=== PATIENT | female | born 1945 | race Caucasian/White ===

== ENCOUNTER → 2017-07-25 11:13 | Outpatient (CLI) | payer OTHER, SELFPAY ==
[2017-07-25 12:14] LABS: Add Manual Diff / Slide Review NO; Basophils Percent Auto 1.2 % (0-2); Eosinophils Percent Auto 10.2 % (2-4); Hematocrit 41.7 % (36-46); Hemoglobin 14.2 g/dL (12.0-16.0); Lymphocytes Percent Auto 26.5 % (25-40); Mean Corpuscular Hemoglobin 29.4 PG (26-34); Mean Corpuscular Volume 86.4 fL (80-100); Monocytes Percent Auto 6.1 % (3-14); Neutrophils Absolute Auto 6100 /uL (3000-5900); Platelet Count 369 X10^3/uL (150-400); Red Blood Cell Count 4.82 X10^6/uL (4.0-5.2); Red Cell Distribution Width 12.8 % (11.6-14.8); White Blood Cell Count 10.9 X10^3/uL (4.5-11.0)
[2017-07-25 13:15] LABS: Alanine Aminotransferase 30 IU/L (9-52); Albumin 4.1 g/dL (3.5-5.0); Albumin Globulin Ratio 1.5 (1.0-2.8); Alkaline Phosphatase 85 U/L (38-126); Aspartate Aminotransferase 18 IU/L (14-36); BUN Creatinine Ratio 24.4 (6-22); Bilirubin Total 0.6 mg/dL (0.2-1.3); Calcium 9.9 mg/dL (8.4-10.2); Cholesterol 145 mg/dL (140-199); Estimated Glomerular Filt Rate > 60.0 mL/min (>60); Globulin 2.7 g/dL (1.7-4.1); Glucose 89 mg/dL (80-110); HDL Cholesterol 39 mg/dL (40-60); HEMOLYSIS < 15 (0-50); LDL Cholesterol Calculated 70 mg/dL (<100); Potassium 5.3 mmol/L (3.4-5.1); Sodium 137 mmol/L (137-145); Total Protein 6.8 g/dL (6.3-8.2); Triglycerides 182 mg/dL (35-150)
[2017-07-25 13:46] LABS: Thyroid Stimulating Hormone 2.62 uIU/mL (0.47-4.68)
== END ==
PROVIDERS: PCP Family Medicine; Visit Provider Family Medicine
DX: I10 Essential (primary) hypertension (principal); E78.2 Mixed hyperlipidemia; E11.9 Type 2 diabetes mellitus without complications
CPT/HCPCS: 36415; 80053; 80061; 84443; 85025

== ENCOUNTER → 2017-08-01 10:15 | Outpatient (CLI) | payer OTHER, SELFPAY ==
--- NOTE | 2017-08-01 10:18 | DI.RAD.S_ITS ---
PROCEDURE: XR LUMBAR SPINE MIN 4V INDICATIONS: pain TECHNIQUE: 5 views of the lumbar spine acquired. COMPARISON: None. FINDINGS: Bones: 5 nonrib-bearing vertebrae are present. There is slight retrolisthesis at T12-L1, L1-L2, with mild anterolisthesis L3-4 and L4-5. Disc degeneration L5-S1. Disc space narrowing L1-2, L3-4 and L4-5. No vertebral body compression fractures. No suspicious bony lesions. There is sclerosis over the facet joints, most marked at L4-5 and L5-S1. Soft tissues: Overlying bowel gas pattern is normal. Vascular calcifications. Flexion/extension: There is normal range of motion, with malalignment unchanged. IMPRESSION: 1. Lumbar malalignment appearing stable during range of motion. 2. Multilevel disc degeneration and facet arthropathy. 3. Atherosclerosis without aneurysm. Dictated by: nAdrew Wong M.D. on 08/01/2017 at 11:33 Approved by: Andrew Wong M.D. on 08/01/2017 at 11:36
[2017-08-01 12:26] LABS: Hemoglobin A1C% w Est Avg Glu 6.3 % (4.0-6.0)
== END ==
PROVIDERS: PCP Family Medicine; Visit Provider Family Medicine
DX: E11.9 Type 2 diabetes mellitus without complications (principal); M25.559 Pain in unspecified hip
CPT/HCPCS: 36415; 72110; 83036

== ENCOUNTER 2017-08-06 14:30 | Outpatient (RCR) | payer OTHER, SELFPAY ==
--- NOTE | 2017-07-23 17:26 | PT.OIE ---
Current Diagnoses Pain in left hip (07/23/17) Past Surgical History History of carpal tunnel repair History of fundoplication History of knee replacement History of tonsillectomy Status post appendectomy Provider Visit Care Team Role Provider Type Ezra Oconnor MD Attending Provider Physician Family Provider Primary Care Provider Specialty: Family Practice Address: [address] [place] [address], [id number] Email: [email or web address] Physical Therapy Initial Evaluation PT-OP-A Visit Information Start: 07/23/17 16:54 Freq: Status: Active Protocol: Document 07/23/17 16:54 [facility] (Rec: 07/23/17 17:06 [facility] [email or web address]) Out-Patient Physical Therapy Visit Information Visit Information Visit Type Initial Evaluation Visit Start Time 13:00 Visit Stop Time 13:45 Total Visit Minutes 45 Evaluation Information Evaluation Date 07/23/17 PT-OP-B Current Condition Start: 07/23/17 16:54 Freq: Status: Active Protocol: Document 07/23/17 16:54 [facility] (Rec: 07/23/17 17:06 [facility] [email or web address]) Current Condition History of Current Condition Onset Date February 2017 Current Complaints compaints of L sided inner groin and hip pain, intermittent radicular sx History of Current Condition Rabia reports her symptoms began when she was sitting crossed legged on her living room floor and she leaned really far forward to grab something off the floor. She felt an immediate strain in her left groin region. Pain progressed from there to her hip as time when on. Then she started noticing pain down the lateral left leg. Rabia reports when symptoms are at their worst she will make her self walk and this helps after a while to ease the pain. Sitting and trying to roll over in bed can increase symptoms Treatment Goals Patient/Caregiver Goals Rabia's goals include decreasing pain so that she can continue with her daily activities and sleep/sit without pain Prior Functional Status Baseline Function- ADL's Independent Baseline Function- Mobility Independent Current Functional Impairments (Reported) Functional Limitations- ADL's pain with sitting or squatting and with trying to fall asleep at night PT-OP-C Subjective Start: 07/23/17 16:54 Freq: Status: Active Protocol: Document 07/23/17 16:54 [facility] (Rec: 07/23/17 17:06 [facility] [email or web address]) OP-PT Subjective Patient Comments Patient Comments Rabia rates her pain as 4/10 PT-OP-F Manual Assessment Start: 07/23/17 17:06 Freq: Status: Active Protocol: Document 07/23/17 17:07 [facility] (Rec: 07/23/17 17:26 [facility] [email or web address]) Manual Assessments Soft Tissue Assessment Soft Tissue Mobility Assessment tenderness to palpation and muscle guarding at the left adductor attachment tot he pubic ramus, left sacral TERESA and piriformis musculature Joint Mobility Assessment Joint Mobility Assessment + SI joint test unstable on the left with + ASLR Other Manual Assessments Other Manual Assessments left leg longer in supine + tests for left anteriorly rotated innominate sacrum rotated to the left PT-OP-J Posture/Palpation/Skin Start: 07/23/17 17:06 Freq: Status: Active Protocol: Document 07/23/17 17:07 [facility] (Rec: 07/23/17 17:26 [facility] [email or web address]) Palpation Assessment Location One Palpation Findings Tenderness Palpation Details Left PSIS and sacral border PT-OP-K Range of Motion Start: 07/23/17 17:06 Freq: Status: Active Protocol: Document 07/23/17 17:07 [facility] (Rec: 07/23/17 17:26 [facility] [email or web address]) Hip Goniometric Range of Motion Hip Measured in Degrees Left Testing Position Supine Internal Rotation 20 External Rotation 30 Hip ROM Limitations Hip ROM Limitations Soft Tissue Tightness Pain Comments sharp pain with hip IR/ER in standing and in supine AROM with leg straight PT-OP-Q Treatments Start: 07/23/17 17:06 Freq: Status: Active Protocol: Document 07/23/17 17:07 [facility] (Rec: 07/23/17 17:26 [facility] [email or web address]) Therapeutic Exercises Supine Exercises 1 Supine Exercise Name gave HEP of pelvic floor isolations, TA, adductor ball squeeze Side bilateral Reps/Minutes 2 sets of 10 reps Manual Therapy Treatment Soft Tissue Mobilization 1 Mobilization Type Myofascial Release Body Position Prone Comments left pirformis muscle MFR Joint Mobilizations 1 Joint MET left innominant anterior rotation Grade I Body Position Supine Reps/Duration 5 reps with MET Comments technique to reduce left anterior rotated innominant PT-OP-T Assessment and Plan Start: 07/23/17 17:06 Freq: Status: Active Protocol: Document 07/23/17 17:07 [facility] (Rec: 07/23/17 17:26 [facility] [email or web address]) Physical Therapy Assessment Rehab Potential Rehabilitation Potential Excellent Evaluation Complexity Number of Personal Factors/Comorbidities 0 Number of Body Systems Impaired 1-2 Clinical Presentation at Evaluation Stable Impairments Impairments Functional Activities Pain ROM Soft Tissue Mobility Strength Tone Goals Three Impairment muscle guarding and spasm of the left piriformis Patient Portal Representative Goal (LTG) reduce muscle guarding and spasm of the left pififormis musculature to decrease pull on the sacrum and decrease radicular symptoms Two Impairment SI dysfunction Short Term Goal (STG) Correct alignement of the SI joint equalizing leg length and Rabia no longer has pain with left hip IR/ER STG Duration 5 weeks One Impairment pain rated 4/10 with radicular pain down the left leg at times Longterm Goal (LTG) Rabia reports overall a decrease in hip and groin pain . She is able to sleep through the night and is not having pain with sitting or radiating down her leg LTG Duration 8 weeks Assessment Summary Assessment Rabia presents to physical therapy with symptoms of SI dysfunction. Her left innominant is roated forward and sacrum is rotated to the left. She notes she feels arechiga if her left leg is longer in standing and this is most likely due to the SI being out of alignment. Treatment will focus on SI alignment and stabilization for the SI joint, STM/MFR and flexibility exercises for the hip musculature Physical Therapy Plan Frequency and Duration Frequency of Treatment 2x/Week Duration of Treatment 8 weeks Plan of Care Start Date 07/23/17 Plan of Care End Date 09/17/17 Therapeutic Interventions Therapeutic Interventions Home Exercise Program Joint Mobilizations Manual Therapy Neuromuscular Re-education Patient/Caregiver Education Self-Care/Home Management Soft Tissue Mobilization Therapeutic Exercises Modalities Cold Pack/Ice Massage Ultrasound Please Sign and Return: I have reviewed this Plan of Care and certify that the skilled therapy services above are required to meet the patient???s needs. Physician Signature Date Printed Name and Credentials Clinical Instructor Signature Printed Name and Credentials
--- NOTE | 2017-07-26 06:17 | PT.OTN ---
Current Diagnoses Pain in left hip (07/25/17) Physical Therapy Treatment Note PT-OP-A Visit Information Start: 07/23/17 16:54 Freq: Status: Active Protocol: Document 07/25/17 13:45 [facility] (Rec: 07/26/17 06:15 [facility] [email or web address]) Out-Patient Physical Therapy Visit Information Visit Information Visit Type Treatment Note Visit Start Time 13:45 Visit Stop Time 14:30 Total Visit Minutes 45 Visit Number 2 Number of TIMBER ESTIMATOR Visits 0 PT-OP-B Current Condition Start: 07/23/17 16:54 Freq: Status: Active Protocol: Document 07/23/17 16:54 [facility] (Rec: 07/23/17 17:06 [facility] [email or web address]) Current Condition History of Current Condition Onset Date February 2017 Current Complaints compaints of L sided inner groin and hip pain, intermittent radicular sx History of Current Condition Rabia reports her symptoms began when she was sitting crossed legged on her living room floor and she leaned really far forward to grab something off the floor. She felt an immediate strain in her left groin region. Pain progressed from there to her hip as time when on. Then she started noticing pain down the lateral left leg. Rabia reports when symptoms are at their worst she will make her self walk and this helps after a while to ease the pain. Sitiing and trying to roll over in bed can exxacerbate symptoms Treatment Goals Patient/Caregiver Goals Rabia's goals include decreasing pain so that she can continue with her daily activities and sleep/sit without pain Prior Functional Status Baseline Function- ADL's Independent Baseline Function- Mobility Independent Current Functional Impairments (Reported) Functional Limitations- ADL's pain with sitting or squatting and with trying to fall asleet at night PT-OP-C Subjective Start: 07/23/17 16:54 Freq: Status: Active Protocol: Document 07/25/17 13:45 [facility] (Rec: 07/26/17 06:15 [facility] [email or web address]) OP-PT Subjective Patient Comments Patient Comments Brisa reports she felt better after last visit Patient Reported Progress Improving PT-OP-F Manual Assessment Start: 07/23/17 17:06 Freq: Status: Active Protocol: Document 07/23/17 17:07 [facility] (Rec: 07/23/17 17:26 [facility] [email or web address]) Manual Assessments Soft Tissue Assessment Soft Tissue Mobility Assessment tenderness to palpation and muscle guarding at the left adductor attachment tot he pubic ramus, left sacral TERESA and piriformis musculature Joint Mobility Assessment Joint Mobility Assessment + SI joint test unstable on the left with + ASLR Other Manual Assessments Other Manual Assessments left leg longer in supine + tests for left anteriorly rotated innominate sacrum rotated to the left PT-OP-J Posture/Palpation/Skin Start: 07/23/17 17:06 Freq: Status: Active Protocol: Document 07/23/17 17:07 [facility] (Rec: 07/23/17 17:26 [facility] [email or web address]) Palpation Assessment Location One Palpation Findings Tenderness Palpation Details Left PSIS and sacral border PT-OP-K Range of Motion Start: 07/23/17 17:06 Freq: Status: Active Protocol: Document 07/23/17 17:07 [facility] (Rec: 07/23/17 17:26 [facility] [email or web address]) Hip Goniometric Range of Motion Hip Measured in Degrees Left Testing Position Supine Internal Rotation 20 External Rotation 30 Hip ROM Limitations Hip ROM Limitations Soft Tissue Tightness Pain Comments sharp pain with hip IR/ER in standing and in supine AROM with leg straight PT-OP-Q Treatments Start: 07/23/17 17:06 Freq: Status: Active Protocol: Document 07/25/17 13:45 [facility] (Rec: 07/26/17 06:15 [facility] [email or web address]) Therapeutic Exercises Supine Exercises 2 Supine Exercise Name hamstring stretch and ITB stretch with strap Side left Reps/Minutes hold 1-2 minutes 1 Supine Exercise Name gave HEP of pelvic floor isolations, TA, adductor ball squeeze Side bilateral Reps/Minutes 2 sets of 10 reps Manual Therapy Treatment Soft Tissue Mobilization 2 Body Location left adductors Mobilization Type Myofascial Release Comments MFR to the left adductors Joint Mobilizations 1 Joint MET left innominant anterior rotation Grade I Body Position Supine Reps/Duration 5 reps with MET Comments technique to reduce left anterior rotated innominant PT-OP-R Modalities Start: 07/26/17 06:15 Freq: Status: Active Protocol: Document 07/25/17 13:45 [facility] (Rec: 07/26/17 06:17 [facility] [email or web address]) Ultrasound Therapy Treatment Left Thigh Treatment Duration (minutes) 8 Patient Position Supine Coupling Medium Ultrasound Gel Frequency Setting (mHz) 1 Mode Setting Continuous Intensity Setting (w/cm2) 1.5 Patient Tolerance Good Comment Treatment Comment left adductor proximal attachment PT-OP-T Assessment and Plan Start: 07/23/17 17:06 Freq: Status: Active Protocol: Document 07/25/17 13:45 [facility] (Rec: 07/26/17 06:15 [facility] [email or web address]) Physical Therapy Assessment Rehab Potential Rehabilitation Potential Excellent Impairments Impairments Functional Activities Pain ROM Soft Tissue Mobility Strength Tone Assessment Summary Assessment decreased tenderness in the left gluteals today, some improvement with hip IR/ER Physical Therapy Plan Frequency and Duration Frequency of Treatment 2x/Week Duration of Treatment 8 weeks Plan of Care Start Date 07/23/17 Plan of Care End Date 09/17/17 Next Visit Focus/Plan Next Note Type Treatment Note Next Visit Plan work towards improved flexibility of the left hip and SI stabilization Please Sign and Return: I have reviewed this Plan of Care and certify that the skilled therapy services above are required to meet the patient???s needs. Physician Signature Date Printed Name and Credentials Clinical Instructor Signature Printed Name and Credentials
--- NOTE | 2017-07-30 17:08 | PT.OTN ---
Current Diagnoses Pain in left hip (07/30/17) Physical Therapy Treatment Note PT-OP-A Visit Information Start: 07/23/17 16:54 Freq: Status: Active Protocol: Document 07/30/17 17:01 [facility] (Rec: 07/30/17 17:08 [facility] [email or web address]) Out-Patient Physical Therapy Visit Information Visit Information Visit Type Treatment Note Visit Start Time 13:45 Visit Stop Time 14:30 Total Visit Minutes 45 Visit Number 3 Number of NARROW GAUGE OPERATOR Visits 0 PT-OP-B Current Condition Start: 07/23/17 16:54 Freq: Status: Active Protocol: Document 07/23/17 16:54 [facility] (Rec: 07/23/17 17:06 [facility] [email or web address]) Current Condition History of Current Condition Onset Date February 2017 Current Complaints compaints of L sided inner groin and hip pain, intermittent radicular sx History of Current Condition Rabia reports her symptoms began when she was sitting crossed legged on her living room floor and she leaned really far forward to grab something off the floor. She felt an immediate strain in her left groin region. Pain progressed from there to her hip as time when on. Then she started noticing pain down the lateral left leg. Rabia reports when symptoms are at their worst she will make her self walk and this helps after a while to ease the pain. Sitiing and trying to roll over in bed can exxacerbate symptoms Treatment Goals Patient/Caregiver Goals Rabia's goals include decreasing pain so that she can continue with her daily activities and sleep/sit without pain Prior Functional Status Baseline Function- ADL's Independent Baseline Function- Mobility Independent Current Functional Impairments (Reported) Functional Limitations- ADL's pain with sitting or squatting and with trying to fall asleet at night PT-OP-C Subjective Start: 07/23/17 16:54 Freq: Status: Active Protocol: Document 07/30/17 17:01 [facility] (Rec: 07/30/17 17:08 [facility] [email or web address]) OP-PT Subjective Patient Comments Patient Comments Brisa reports she drove to [facility] yesterday this weekend and she could tell she was stiff today when she tried to walk. She notes she is doing better with hip rotation Patient Reported Progress Improving PT-OP-F Manual Assessment Start: 07/23/17 17:06 Freq: Status: Active Protocol: Document 07/23/17 17:07 [facility] (Rec: 07/23/17 17:26 [facility] [email or web address]) Manual Assessments Soft Tissue Assessment Soft Tissue Mobility Assessment tenderness to palpation and muscle guarding at the left adductor attachment tot he pubic ramus, left sacral TERESA and piriformis musculature Joint Mobility Assessment Joint Mobility Assessment + SI joint test unstable on the left with + ASLR Other Manual Assessments Other Manual Assessments left leg longer in supine + tests for left anteriorly rotated innominate sacrum rotated to the left PT-OP-J Posture/Palpation/Skin Start: 07/23/17 17:06 Freq: Status: Active Protocol: Document 07/23/17 17:07 [facility] (Rec: 07/23/17 17:26 [facility] [email or web address]) Palpation Assessment Location One Palpation Findings Tenderness Palpation Details Left PSIS and sacral border PT-OP-K Range of Motion Start: 07/23/17 17:06 Freq: Status: Active Protocol: Document 07/23/17 17:07 [facility] (Rec: 07/23/17 17:26 [facility] [email or web address]) Hip Goniometric Range of Motion Hip Measured in Degrees Left Testing Position Supine Internal Rotation 20 External Rotation 30 Hip ROM Limitations Hip ROM Limitations Soft Tissue Tightness Pain Comments sharp pain with hip IR/ER in standing and in supine AROM with leg straight PT-OP-Q Treatments Start: 07/23/17 17:06 Freq: Status: Active Protocol: Document 07/30/17 17:01 [facility] (Rec: 07/30/17 17:08 [facility] [email or web address]) Therapeutic Exercises Supine Exercises 4 Supine Exercise Name SLR Reps/Minutes 10 reps 3 Supine Exercise Name roll outs with theraband Reps/Minutes 2 sets of 10 reps 2 Supine Exercise Name hamstring stretch and ITB stretch with strap Side left Reps/Minutes hold 1-2 minutes 1 Supine Exercise Name gave HEP of pelvic floor isolations, TA, adductor ball squeeze Side bilateral Reps/Minutes 2 sets of 10 reps Sidelying Exercises 2 Sidelying Exercise Name sidelying hip abduction Reps/Minutes 3 sets of 10 reps 1 Sidelying Exercise Name clam shells Reps/Minutes 3 sets of 10 reps Manual Therapy Treatment Soft Tissue Mobilization 1 Mobilization Type Myofascial Release Body Position Prone Comments left pirformis muscle MFR Joint Mobilizations 1 Joint MET left innominant anterior rotation Grade I Body Position Supine Reps/Duration 5 reps with MET Comments technique to reduce left anterior rotated innominant PT-OP-R Modalities Start: 07/26/17 06:15 Freq: Status: Active Protocol: Document 07/25/17 13:45 [facility] (Rec: 07/26/17 06:17 [facility] [email or web address]) Ultrasound Therapy Treatment Left Thigh Treatment Duration (minutes) 8 Patient Position Supine Coupling Medium Ultrasound Gel Frequency Setting (mHz) 1 Mode Setting Continuous Intensity Setting (w/cm2) 1.5 Patient Tolerance Good Comment Treatment Comment left adductor proximal attachment PT-OP-T Assessment and Plan Start: 07/23/17 17:06 Freq: Status: Active Protocol: Document 07/30/17 17:01 [facility] (Rec: 07/30/17 17:08 [facility] [email or web address]) Physical Therapy Assessment Assessment Summary Assessment able to perform clam shells and roll outs with theraband without hip pain today. Physical Therapy Plan Frequency and Duration Frequency of Treatment 2x/Week Duration of Treatment 8 weeks Plan of Care Start Date 07/23/17 Plan of Care End Date 09/17/17 Therapeutic Interventions Therapeutic Interventions Home Exercise Program Joint Mobilizations Manual Therapy Neuromuscular Re-education Patient/Caregiver Education Self-Care/Home Management Soft Tissue Mobilization Therapeutic Exercises Modalities Cold Pack/Ice Massage Ultrasound Next Visit Focus/Plan Next Note Type Treatment Note Next Visit Plan work towards improved flexibility of the left hip and SI stabilization Please Sign and Return: I have reviewed this Plan of Care and certify that the skilled therapy services above are required to meet the patient???s needs. Physician Signature Date Printed Name and Credentials Clinical Instructor Signature Printed Name and Credentials
--- NOTE | 2017-08-01 15:38 | PT.OTN ---
Current Diagnoses Pain in left hip (08/01/17) Physical Therapy Treatment Note PT-OP-A Visit Information Start: 07/23/17 16:54 Freq: Status: Active Protocol: Document 08/01/17 15:31 [facility] (Rec: 08/01/17 15:38 [facility] [email or web address]) Out-Patient Physical Therapy Visit Information Visit Information Visit Type Treatment Note Visit Start Time 13:45 Visit Stop Time 14:30 Total Visit Minutes 45 Visit Number 4 Number of OTOLARYNGOLOGY PHYSICIAN Visits 0 PT-OP-B Current Condition Start: 07/23/17 16:54 Freq: Status: Active Protocol: Document 07/23/17 16:54 [facility] (Rec: 07/23/17 17:06 [facility] [email or web address]) Current Condition History of Current Condition Onset Date February 2017 Current Complaints compaints of L sided inner groin and hip pain, intermittent radicular sx History of Current Condition Rabia reports her symptoms began when she was sitting crossed legged on her living room floor and she leaned really far forward to grab something off the floor. She felt an immediate strain in her left groin region. Pain progressed from there to her hip as time when on. Then she started noticing pain down the lateral left leg. Rabia reports when symptoms are at their worst she will make her self walk and this helps after a while to ease the pain. Sitiing and trying to roll over in bed can exxacerbate symptoms Treatment Goals Patient/Caregiver Goals Rabia's goals include decreasing pain so that she can continue with her daily activities and sleep/sit without pain Prior Functional Status Baseline Function- ADL's Independent Baseline Function- Mobility Independent Current Functional Impairments (Reported) Functional Limitations- ADL's pain with sitting or squatting and with trying to fall asleet at night PT-OP-C Subjective Start: 07/23/17 16:54 Freq: Status: Active Protocol: Document 08/01/17 15:31 [facility] (Rec: 08/01/17 15:38 [facility] [id number]) OP-PT Subjective Patient Comments Patient Comments joe reports she still feels that her left leg is longer when she walks. She did see Dr. Oconnor today and was given a Xray. A MRI will be scheduled Patient Reported Progress Improving PT-OP-F Manual Assessment Start: 07/23/17 17:06 Freq: Status: Active Protocol: Document 07/23/17 17:07 [facility] (Rec: 07/23/17 17:26 [facility] [email or web address]) Manual Assessments Soft Tissue Assessment Soft Tissue Mobility Assessment tenderness to palpation and muscle guarding at the left adductor attachment tot he pubic ramus, left sacral TERESA and piriformis musculature Joint Mobility Assessment Joint Mobility Assessment + SI joint test unstable on the left with + ASLR Other Manual Assessments Other Manual Assessments left leg longer in supine + tests for left anteriorly rotated innominate sacrum rotated to the left PT-OP-J Posture/Palpation/Skin Start: 07/23/17 17:06 Freq: Status: Active Protocol: Document 07/23/17 17:07 [facility] (Rec: 07/23/17 17:26 [facility] [email or web address]) Palpation Assessment Location One Palpation Findings Tenderness Palpation Details Left PSIS and sacral border PT-OP-K Range of Motion Start: 07/23/17 17:06 Freq: Status: Active Protocol: Document 07/23/17 17:07 [facility] (Rec: 07/23/17 17:26 [facility] [email or web address]) Hip Goniometric Range of Motion Hip Measured in Degrees Left Testing Position Supine Internal Rotation 20 External Rotation 30 Hip ROM Limitations Hip ROM Limitations Soft Tissue Tightness Pain Comments sharp pain with hip IR/ER in standing and in supine AROM with leg straight PT-OP-Q Treatments Start: 07/23/17 17:06 Freq: Status: Active Protocol: Document 08/01/17 15:31 [facility] (Rec: 08/01/17 15:38 [facility] [email or web address]) Therapeutic Exercises Supine Exercises 5 Supine Exercise Name piriformis stretch 2 Supine Exercise Name hamstring stretch and ITB stretch with strap Side left Reps/Minutes hold 1-2 minutes 1 Supine Exercise Name gave HEP of pelvic floor isolations, TA, adductor ball squeeze Side bilateral Reps/Minutes 2 sets of 10 reps Manual Therapy Treatment Soft Tissue Mobilization 1 Mobilization Type Myofascial Release Body Position right sidelying Comments left pirformis muscle MFR Joint Mobilizations 1 Joint MET left innominant anterior rotation Grade I Body Position Supine Reps/Duration 5 reps with MET Comments technique to reduce left anterior rotated innominant Self-Care/Home Management Treatment Education Patient Education Joint Protection Other Education Rabia was given a SI belt for temporary use to try and see if this helped keep her stable with walking PT-OP-R Modalities Start: 07/26/17 06:15 Freq: Status: Active Protocol: Document 08/01/17 15:31 [facility] (Rec: 08/01/17 15:38 [facility] [email or web address]) Ultrasound Therapy Treatment Left Hip Treatment Duration (minutes) 8 Patient Position Sidelying Coupling Medium Ultrasound Gel Frequency Setting (mHz) 1 Mode Setting Continuous Duty Cycle 100% Intensity Setting (w/cm2) 1.5 PT-OP-T Assessment and Plan Start: 07/23/17 17:06 Freq: Status: Active Protocol: Document 08/01/17 15:31 [facility] (Rec: 08/01/17 15:38 [facility] [email or web address]) Physical Therapy Assessment Assessment Summary Assessment gave Rabia a SI belt today for trial with walking as her chief complaint is pain with walking and feeling like the left leg is longer than the right. She was able to go into full hip ER today and tolerated hip piriformis stretch Physical Therapy Plan Frequency and Duration Frequency of Treatment 2x/Week Duration of Treatment 8 weeks Plan of Care Start Date 07/23/17 Plan of Care End Date 09/17/17 Therapeutic Interventions Therapeutic Interventions Home Exercise Program Joint Mobilizations Manual Therapy Neuromuscular Re-education Patient/Caregiver Education Self-Care/Home Management Soft Tissue Mobilization Therapeutic Exercises Modalities Cold Pack/Ice Massage Ultrasound Next Visit Focus/Plan Next Note Type Treatment Note Next Visit Plan assess SI belt effectiveness and issue a belt if it is helping. Begin working additional SI stabilization Please Sign and Return: I have reviewed this Plan of Care and certify that the skilled therapy services above are required to meet the patient?s needs. Physician Signature Date Printed Name and Credentials Clinical Instructor Signature Printed Name and Credentials
--- NOTE | 2017-08-06 17:22 | PT.OTN ---
Current Diagnoses Pain in left hip (08/06/17) Physical Therapy Treatment Note PT-OP-A Visit Information Start: 07/23/17 16:54 Freq: Status: Active Protocol: Document 08/06/17 17:16 [facility] (Rec: 08/06/17 17:22 [facility] [email or web address]) Out-Patient Physical Therapy Visit Information Visit Information Visit Type Treatment Note Visit Start Time 14:30 Visit Stop Time 15:15 Total Visit Minutes 45 Visit Number 5 Number of HAY BUCKLER Visits 0 PT-OP-B Current Condition Start: 07/23/17 16:54 Freq: Status: Active Protocol: Document 07/23/17 16:54 [facility] (Rec: 07/23/17 17:06 [facility] [email or web address]) Current Condition History of Current Condition Onset Date February 2017 Current Complaints compaints of L sided inner groin and hip pain, intermittent radicular sx History of Current Condition Rabia reports her symptoms began when she was sitting crossed legged on her living room floor and she leaned really far forward to grab something off the floor. She felt an immediate strain in her left groin region. Pain progressed from there to her hip as time when on. Then she started noticing pain down the lateral left leg. Rabia reports when symptoms are at their worst she will make her self walk and this helps after a while to ease the pain. Sitiing and trying to roll over in bed can exxacerbate symptoms Treatment Goals Patient/Caregiver Goals Rabia's goals include decreasing pain so that she can continue with her daily activities and sleep/sit without pain Prior Functional Status Baseline Function- ADL's Independent Baseline Function- Mobility Independent Current Functional Impairments (Reported) Functional Limitations- ADL's pain with sitting or squatting and with trying to fall asleet at night PT-OP-C Subjective Start: 07/23/17 16:54 Freq: Status: Active Protocol: Document 08/06/17 17:16 [facility] (Rec: 08/06/17 17:22 [facility] [email or web address]) OP-PT Subjective Patient Comments Patient Comments joe notes she tried wearing the SI belt but she felt like it was bothering her . She walked 30 minutes on the treadmill at the gym and it took 15 minutes to decrease her pain with walking. The next day her pain was increased. Her MRI is scheduled for August 20. She leaves for vacation after today until the PT-OP-F Manual Assessment Start: 07/23/17 17:06 Freq: Status: Active Protocol: Document 07/23/17 17:07 [facility] (Rec: 07/23/17 17:26 [facility] [email or web address]) Manual Assessments Soft Tissue Assessment Soft Tissue Mobility Assessment tenderness to palpation and muscle guarding at the left adductor attachment tot he pubic ramus, left sacral TERESA and piriformis musculature Joint Mobility Assessment Joint Mobility Assessment + SI joint test unstable on the left with + ASLR Other Manual Assessments Other Manual Assessments left leg longer in supine + tests for left anteriorly rotated innominate sacrum rotated to the left PT-OP-J Posture/Palpation/Skin Start: 07/23/17 17:06 Freq: Status: Active Protocol: Document 07/23/17 17:07 [facility] (Rec: 07/23/17 17:26 [facility] [email or web address]) Palpation Assessment Location One Palpation Findings Tenderness Palpation Details Left PSIS and sacral border PT-OP-K Range of Motion Start: 07/23/17 17:06 Freq: Status: Active Protocol: Document 07/23/17 17:07 [facility] (Rec: 07/23/17 17:26 [facility] [email or web address]) Hip Goniometric Range of Motion Hip Measured in Degrees Left Testing Position Supine Internal Rotation 20 External Rotation 30 Hip ROM Limitations Hip ROM Limitations Soft Tissue Tightness Pain Comments sharp pain with hip IR/ER in standing and in supine AROM with leg straight PT-OP-Q Treatments Start: 07/23/17 17:06 Freq: Status: Active Protocol: Document 08/06/17 17:16 [facility] (Rec: 08/06/17 17:22 [facility] [email or web address]) Therapeutic Exercises Supine Exercises 7 Supine Exercise Name TA with bridges 6 Supine Exercise Name TA with marching 5 Supine Exercise Name piriformis stretch 4 Supine Exercise Name SLR Reps/Minutes 10 reps 1 Supine Exercise Name gave HEP of pelvic floor isolations, TA, adductor ball squeeze Side bilateral Reps/Minutes 2 sets of 10 reps Sidelying Exercises 1 Sidelying Exercise Name clam shells Reps/Minutes 3 sets of 10 reps Sitting Exercises 1 Sitting Exercise Name seated sidebend stretching Manual Therapy Treatment Soft Tissue Mobilization 1 Mobilization Type Myofascial Release Body Position right sidelying Comments left pirformis muscle MFR Joint Mobilizations 1 Joint MET left innominant anterior rotation Grade I Body Position Supine Reps/Duration 5 reps with MET Comments technique to reduce left anterior rotated innominant PT-OP-R Modalities Start: 07/26/17 06:15 Freq: Status: Active Protocol: Document 08/01/17 15:31 [facility] (Rec: 08/01/17 15:38 [facility] [email or web address]) Ultrasound Therapy Treatment Left Hip Treatment Duration (minutes) 8 Patient Position Sidelying Coupling Medium Ultrasound Gel Frequency Setting (mHz) 1 Mode Setting Continuous Duty Cycle 100% Intensity Setting (w/cm2) 1.5 PT-OP-T Assessment and Plan Start: 07/23/17 17:06 Freq: Status: Active Protocol: Document 08/06/17 17:16 [facility] (Rec: 08/06/17 17:22 [facility] [email or web address]) Physical Therapy Assessment Assessment Summary Assessment MRI will be helpful to assist in diagnosing what is causing the sharp left pain. Sidebending to the left also causes pain as well as hip Rotation at times. Physical Therapy Plan Frequency and Duration Frequency of Treatment 2x/Week Duration of Treatment 8 weeks Plan of Care Start Date 07/23/17 Plan of Care End Date 18 Therapeutic Interventions Therapeutic Interventions Home Exercise Program Joint Mobilizations Manual Therapy Neuromuscular Re-education Patient/Caregiver Education Self-Care/Home Management Soft Tissue Mobilization Therapeutic Exercises Modalities Cold Pack/Ice Massage Ultrasound Next Visit Focus/Plan Next Visit Plan continue to work on dynamic lumbar stabilization Please Sign and Return: I have reviewed this Plan of Care and certify that the skilled therapy services above are required to meet the patient?s needs. Physician Signature Date Printed Name and Credentials Clinical Instructor Signature Printed Name and Credentials
== END 2017-10-17 11:01 ==
LOC: PHYS 14:30
PROVIDERS: Family Provider Family Medicine; PCP Family Medicine; Visit Provider Family Medicine
DX: M25.552 Pain in left hip (principal)
CPT/HCPCS: 97035; 97110; 97140; 97161; 97530

== ENCOUNTER → 2017-08-20 09:13 | Outpatient (CLI) | payer OTHER, SELFPAY ==
--- NOTE | 2017-08-20 09:15 | DI.MRI.S_ITS ---
PROCEDURE: MR HIP LT WO CON INDICATIONS: Left hip and groin pain TECHNIQUE: Noncontrast coronal T1 spin echo and STIR through the bony pelvis. Coronal and axial T2 fast spin echo with fat saturation, sagittal T1 spin echo, and oblique axial T2 fast spin echo with fat saturation through the hip. COMPARISON: [facility], MR, MR LUMBAR SPINE WO CON, 08/20/2017, 10:03. [facility], CR, XR LUMBAR SPINE MIN 4V, 08/01/2017, 10:31. [facility], CR, [id number] W PEL IF PERFORMED, 07/01/2017, 14:06. FINDINGS: Image quality: Excellent. Bones and joints: Bone marrow of the pelvic ring and proximal femurs show normal signal throughout except at the medial acetabular border of the left hip joint where mild edema in the marrow space can be seen. There is asymmetric thinning of the articular interspace at the left hip when compared to the right, equivalent to that previously identified during pelvis and left hip plain film imaging 07/01/17. A small excess of asymmetric left hip joint fluid is present. Mild osteophytic spurring at the hip joint margins appears present.. No intraosseous lesions or fractures. No avascular necrosis of the femoral heads. The visualized lower lumbar spine appears normally aligned. Tendons and ligaments: The gluteus medius and minimus tendons appear intact, without associated muscle atrophy. The nearby proximal iliotibial band also appears intact. The iliopsoas tendon appears intact, without adjacent bursal fluid collections or evidence for impingement syndrome. The origin of the hamstring tendon is intact at the ischial tuberosity, as well as the associated sacrotuberous ligament. The straight and reflected heads of the rectus femoris muscle origin appear intact, as well as the conjoint tendon. The ligamentum teres appears intact where visualized. Labrum and cartilage: The acetabular labrum appears intact in the absence of intra-articular contrast. Cartilage surface of the femoral head appears of only mildly reduced thickness. The alpha angle of the femur is within normal limits at less than 55 degrees. Soft tissues: Visualized muscles demonstrate normal bulk and internal signal. Quadratus femoris muscle demonstrates no internal edema to suggest ischiofemoral impingement. The proximal sciatic neurovascular bundle appears normal adjacent to the hamstring tendons. No free pelvic fluid. Bladder wall thickness is normal. Genitourinary structures and bowel loops appear normal where visualized. IMPRESSION: No acute trauma found, no underlying infection or neoplasm is suspected. 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 Dictated by: Josiah Anguiano M.D. on 08/20/2017 at 12:29 Approved by: Josiah Anguiano M.D. on 08/20/2017 at 12:32
--- NOTE | 2017-08-20 09:15 | DI.MRI.S_ITS ---
PROCEDURE: MR LUMBAR SPINE WO CON INDICATIONS: Left hip and groin pain post fall TECHNIQUE: Noncontrast sagittal T1 spin echo and T2 fast echo, sagittal STIR, axial T1 and T2 fast spin echo through the lumbar spine. In cases with scoliosis, additional coronal T2 fast spin echo may be performed. COMPARISON: [facility], CR, XR LUMBAR SPINE MIN 4V, 08/01/2017, 10:31. FINDINGS: Image quality: Excellent. Alignment and Curvature: Minimal grade 1 anterolisthesis is seen at L3-L4 and there is mild grade 1 anterolisthesis is seen at the L4-L5 level. No definite associated pars defects can be seen. There is accentuated lumbar lordosis seen. Bone Marrow: Marrow is of normal overall signal. No acute vertebral body compression fractures. Spinal Cord: Conus medullaris terminates at the L1 level. Visualized cord demonstrates normal signal and size. Paraspinous Soft Tissues: No paravertebral masses. T12-L1: Moderate loss of disc height and disc signal are seen. Mild generalized disc bulge is seen. Mild facet joint hypertrophy is seen. There is moderate left-sided and mild to moderate right-sided neural foraminal narrowing seen. No significant central canal narrowing is seen. L1-L2: The disc height is well-preserved. Loss of disc signal is seen at this level. Mild generalized disc bulge is seen. Moderate bilateral neural foraminal narrowing is seen. No significant central canal narrowing is seen. L2-L3: The disc height is well-preserved. Loss of disc signal is seen at this level. Minimal to mild disc bulge is seen. There is a superimposed right lateral recess disc extrusion seen, with inferior migration of disc material, as on series 2 image 7 and on series 6 images 28 and 29. No significant neural foraminal narrowing is seen. [id number] central canal narrowing is seen. L3-L4: Minimal anterolisthesis is seen at this level. The disc height and disk signal are well-preserved. Moderate to prominent facet hypertrophy is seen. Fluid is seen within the facet joints, left greater than right. There is associated hypertrophy of the ligamentum flavum. Mild to moderate disc bulge is seen, which is eccentric to the right. Mild bilateral neural foraminal narrowing is seen. Moderate central canal narrowing is seen. L4-L5: Mild grade 1 anterolisthesis is seen at this level. Mild loss of disc height is seen. Loss of disc signal is seen. Mild to moderate disc bulge is seen. Moderate to prominent facet hypertrophy is seen at this level. Mild bilateral neural foraminal narrowing is seen. Minimal central canal narrowing is seen. L5-S1: Moderate loss of disc height is seen. Loss of disc signal is seen. [id number] disc bulge is seen, which is eccentric to the left. Moderate facet joint hypertrophy is seen. Moderate bilateral neural foraminal narrowing is seen. No significant central canal narrowing is seen. 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 IMPRESSION: At the L2-L3 level, there is a right lateral recess disc extrusion seen. Moderate bilateral neural foraminal narrowing is seen at L5-S1. Dictated by: Kwame Humphreys M.D. on 08/20/2017 at 10:15 Approved by: Kwame Humphreys M.D. on 08/20/2017 at 10:23
== END ==
PROVIDERS: PCP Family Medicine; Visit Provider Family Medicine
DX: M25.552 Pain in left hip (principal); M51.26 Other intervertebral disc displacement, lumbar region; M48.061 Spinal stenosis, lumbar region without neurogenic claudication
CPT/HCPCS: 72148; 73721

== ENCOUNTER 2018-02-04 14:40 | Emergency (ER) | payer OTHER, SELFPAY ==
[2018-02-04] VITALS (18 sets, daily range): BP systolic 73–133; BP diastolic 32–65; PULSE 57–99; RESP 15–27; TEMP 34.6–35.2; O2SAT 97–100; BMI 27.4
--- NOTE | 2018-02-04 15:57 | ED_ITS ---
HPI - Nausea/Vomiting/Diarrhea General Chief complaint: Nausea/Vomiting/Diarrhea Stated complaint: disoriented,vomiting Time Seen by Provider: 02/04/18 15:44 Source: patient and family Mode of arrival: ambulatory Limitations: no limitations History of Present Illness HPI Narrative: This is a 72-year-old female comes to the emergency department with vomiting that started earlier today. Patient states she has continued to have emesis. She has abdominal pain that she describes is mid abdomen that started at the same time. It has been fairly constant. She has not had a bowel movement in several days. She is unsure if she has been passing flatus. She is not having any back or flank pain. She denies any chest pain or shortness of breath. No fevers that she is aware of but she did have chilling and sweats earlier today. Patient has not had similar symptoms in the past. She has had multiple abdominal surgeries including a Mitch fundoplication and appendectomy. Related Data Home Medications Medication Instructions Recorded Confirmed aspirin 81 mg PO DAILY #0 04/10/11 02/04/18 latanoprost [Xalatan] 1 drp OPHTH BEDTIME #0 06/19/11 02/04/18 amitriptyline 50 mg PO BEDTIME 02/04/18 02/04/18 brimonidine 1 drp OPHTHALMIC (EYE) BID 02/04/18 02/04/18 citalopram 20 mg PO BEDTIME 02/04/18 02/04/18 dorzolamide 1 drp OPHTHALMIC (EYE) BID 02/04/18 02/04/18 fluticasone 2 spray INTRANASAL DAILY 02/04/18 02/04/18 lansoprazole 30 mg PO DAILY 02/04/18 02/04/18 lisinopril 40 mg PO BID 02/04/18 02/04/18 lovastatin 20 mg PO BEDTIME 02/04/18 02/04/18 timolol maleate 1 drp OPHTHALMIC (EYE) BID 02/04/18 02/04/18 Previous Rx's Medication Instructions Recorded metformin 500 mg tablet 1,000 mg PO BID #360 tab 08/01/17 metoprolol tartrate 100 mg tablet 100 mg PO BID #180 tab 08/01/17 spironolactone 25 mg tablet 25 mg PO BID #180 tab 08/01/17 Allergies Allergy/AdvReac Type Severity Reaction Status Date / Time Sulfa (Sulfonamide Allergy Severe RASH/ITCH Verified 02/04/18 15:07 Antibiotics) Review of Systems Review of Systems All systems reviewed & are unremarkable except as noted in HPI and below Constitutional Reports chills and Denies fever(s) Cardiovascular Denies chest pain and Denies dyspnea Respiratory Denies dyspnea Gastrointestinal Gastrointestinal: Reports abdominal pain, Denies melena, Denies hematochezia, Denies change in bowel habits, Reports constipation (Last bowel movement 2 or 3 days ago. Unsure of flatus), Denies diarrhea, Reports nausea and Reports vomiting Genitourinary Denies hematuria, Denies urinary frequency, Denies dysuria, Denies flank pain and Denies urinary urgency Musculoskeletal Denies back pain [facility] Medical History Acne (Chronic ~1963) Anxiety (Chronic) Carpal tunnel syndrome (Chronic ~1984) Cataract (Chronic ~2013) Chronic back pain (Chronic ~1997) Diabetes mellitus (Chronic) GERD (gastroesophageal reflux disease) (Chronic ~1994) Glaucoma (Chronic ~2008) Hay fever (Chronic ~1949) Hemorrhoid (Chronic) History of irregular menstrual cycles (Chronic) Hypertension (Chronic ~1999) OCD (obsessive compulsive disorder) (Chronic ~1999) Osteoarthritis (Chronic ~1979) Recurrent sinusitis (Chronic ~1989) Uterine cancer (Chronic ~1999) Chicken pox (Resolved ~1949) Measles (Resolved) Mumps (Resolved) Rubella (Resolved) Surgical History Anesthesia (Resolved) History of back surgery (Resolved ~1994) History of hand surgery (Resolved ~2002) History of knee surgery (Resolved ~2007) History of toe surgery (Resolved ~1998) History of carpal tunnel repair (~1993) History of fundoplication History of knee replacement (~1984) History of tonsillectomy Status post appendectomy Family History Brother Age: 71 Diabetes mellitus Hypertension Arthritis Father Heart disease Hypertension Grandmother Hypertension Stroke Mother Hypertension Stroke Arthritis Grandmother Mental health problem Sister Age: 67 Diabetes mellitus Hypertension Social History Smoking Status: Never smoker Exam Narrative Exam Narrative: GENERAL: Alert and oriented x three, well-nourished female in moderate distress. Patient appears slightly pale. HEENT: Head normocephalic, atraumatic, EOMI, pupils reactive, face symmetric, moist mucous membranes NECK: Supple, full range of motion CARDIOVASCULAR: Regular rate and rhythm without murmurs, rubs or gallops. RESPIRATORY: Breath sounds equal bilaterally, no wheezes rales or rhonchi. ABDOMEN: Soft, generalized tenderness, mildly distended. Hypoactive bowel sounds all 4 quadrants. No guarding or rebound, rigidity, no mass : No CVA tenderness EXTREMITIES: Normal range of motion, no clubbing or edema. Neurovascularly intact NEUROLOGICAL: Cranial nerves II through XII grossly intact. Moving all extremities SKIN: Warm, dry, no petechiae, no rashes or lesions. Initial Vital Signs Initial Vital Signs: Vital Signs Pulse Rate 99 H 02/04/18 15:08 Respiratory Rate 27 H 02/04/18 15:08 Blood Pressure 119/65 02/04/18 15:08 Pulse Oximetry 100 02/04/18 15:08 Course Orders Ordered: ED Orders 02/04/18 13:45 Complete Blood Count AUTO DIFF Stat Partial Thromboplastin Time Stat Prothrombin Time INR Stat 02/04/18 15:11 EKG-12 Lead Stat 02/04/18 16:20 CT abdomen pelvis wo con Stat 02/04/18 16:40 Comprehensive Metabolic Panel Stat Lipase Stat Troponin I Stat 02/04/18 17:28 Blood Culture Stat Lactate (Lactic Acid) Stat 02/04/18 19:15 Electrolytes Stat 02/04/18 19:19 Urinalysis and Microscopic Stat 02/04/18 19:41 Lactate (Lactic Acid) Stat 02/04/18 19:50 Procalcitonin Stat Venous Blood Gas Stat Sodium Chloride (Normal Saline 0.9%) 1,000 mls @ 1,000 mls/hr IV BOLUS ONE Stop: 02/04/18 20:35 Last Admin: 02/04/18 19:37 Dose: 1,000 mls/hr Discontinued Medications Dextrose (D50w) 25 gm IV NOW ONE Stop: 02/04/18 17:34 Last Admin: 02/04/18 18:08 Dose: 25 gm Furosemide (Lasix) 40 mg IV NOW ONE Stop: 02/04/18 17:34 Last Admin: 02/04/18 18:14 Dose: 40 mg Sodium Chloride (Normal Saline 0.9%) 1,000 mls @ 1,000 mls/hr IV BOLUS ONE Stop: 02/04/18 16:33 Last Infusion: 02/04/18 16:42 Dose: 0 mls/hr Admin: 02/04/18 15:58 Dose: 1,000 mls/hr Metronidazole (Flagyl) 500 mg in 100 mls @ 100 mls/hr IV NOW ONE Stop: 02/04/18 18:06 Last Admin: 02/04/18 19:04 Dose: 100 mls/hr Levofloxacin (Levaquin) 750 mg in 150 mls @ 100 mls/hr IV NOW ONE Stop: 02/04/18 18:36 Last Infusion: 02/04/18 19:04 Dose: 0 mls/hr Admin: 02/04/18 17:35 Dose: 100 mls/hr Calcium Gluconate 4.65 meq/ (Sodium Chloride) 60 mls @ 120 mls/hr IV NOW ONE Stop: 02/04/18 17:34 Last Infusion: 02/04/18 18:39 Dose: 0 mls/hr Admin: 02/04/18 18:04 Dose: 120 mls/hr Sodium Chloride (Normal Saline 0.9%) 1,000 mls @ 1,000 mls/hr IV BOLUS ONE Stop: 02/04/18 19:51 Last Admin: 02/04/18 17:15 Dose: 400 mls/hr Sodium Chloride (Normal Saline 0.9%) 1,000 mls @ 1,000 mls/hr IV BOLUS ONE Stop: 02/04/18 19:53 Last Infusion: 02/04/18 19:29 Dose: 0 mls/hr Admin: 02/04/18 18:30 Dose: 1,000 mls/hr Insulin Human Regular (Humulin R) 5 unit IV NOW ONE Stop: 02/04/18 17:34 Last Admin: 02/04/18 18:11 Dose: 5 unit Morphine Sulfate (Morphine) 4 mg IV NOW ONE Stop: 02/04/18 16:08 Last Admin: 02/04/18 16:11 Dose: 4 mg Ondansetron HCl (Zofran) 4 mg IV NOW ONE Stop: 02/04/18 15:36 Last Admin: 02/04/18 15:58 Dose: 4 mg Sodium Polystyrene Sulfonate (Kayexalate) 30 gm PO NOW ONE Stop: 02/04/18 17:34 Last Admin: 02/04/18 18:15 Dose: 30 gm Vital Signs - 8 hr 02/04/18 15:08 02/04/18 15:33 02/04/18 16:14 Temperature Pulse Rate 99 H 60 62 Respiratory Rate 27 H 22 17 Blood Pressure 119/65 Blood Pressure [Left Arm] 117/64 133/54 L Pulse Oximetry 100 100 100 02/04/18 16:35 02/04/18 17:00 02/04/18 17:30 Temperature Pulse Rate 59 L 60 57 L Respiratory Rate 15 20 18 Blood Pressure Blood Pressure [Left Arm] 127/59 L 113/57 L 113/62 Pulse Oximetry 97 98 100 02/04/18 18:15 02/04/18 18:30 02/04/18 19:00 Temperature 94.2 F L 94.3 F L Pulse Rate 66 68 72 Respiratory Rate 20 20 20 Blood Pressure Blood Pressure [Left Arm] 99/32 L 122/44 L 116/46 L Pulse Oximetry 100 99 100 02/04/18 19:30 02/04/18 19:32 02/04/18 19:34 Temperature 94.7 F L Pulse Rate 85 85 85 Respiratory Rate 20 20 Blood Pressure Blood Pressure [Left Arm] 82/40 L 73/40 L 94/52 L Pulse Oximetry 99 99 MDM - Nausea/Vomiting/Diarrhea Lab Data Attestation: I reviewed the patient's lab results. Result diagrams: 02/04/18 13:45 02/04/18 19:15 Lab Results 02/04/18 02/04/18 02/04/18 Range/Units 13:45 13:45 16:40 WBC 29.0 H (4.5-11.0) X10^3/uL RBC 6.43 H (4.0-5.2) X10^6/uL Hgb 19.0 H (12.0-16.0) g/dL Hct 59.3 H (36-46) % MCV 92.2 (80-100) fL MCH 29.6 (26-34) PG MCHC 32.0 (30-36) % RDW 13.5 (11.6-14.8) % Plt Count 516 H (150-400) X10^3/uL Neut % (Auto) 82.8 H (50-75) % Lymph % (Auto) 13.7 L (25-40) % [place] % (Auto) 1.4 L (3-14) % Eos % (Auto) 1.4 L (2-4) % Baso % (Auto) 0.7 (0-2) % Neut # (Auto) 96570 H (0462-3308) /uL PT 12.0 (10.1-12.7) SECONDS INR 1.0 (0.9-1.3) APTT 36 (26.4-36.2) SECONDS Sodium 139 (137-145) mmol/L Potassium 6.8 H* (3.4-5.1) mmol/L Chloride 107 (98-107) mmol/L Carbon Dioxide 11 L (22-32) mmol/L BUN 27 H (7-17) mg/dL Creatinine 1.60 H (0.52-1.04) mg/dL Estimated GFR 31.9 L (>60) mL/min BUN/Creatinine Ratio 16.9 (6-22) Glucose 235 H (80-110) mg/dL Lactate (0.7-2.1) mmol/L Calcium 8.6 (8.4-10.2) mg/dL Total Bilirubin 1.0 (0.2-1.3) mg/dL AST 36 (14-36) IU/L ALT 29 (9-52) IU/L Alkaline Phosphatase 106 (38-126) U/L Troponin I < 0.012 (0.01-0.034) ng/mL Total Protein 6.0 L (6.3-8.2) g/dL Albumin 3.6 (3.5-5.0) g/dL Globulin 2.4 (1.7-4.1) g/dL Albumin/Globulin Ratio 1.5 (1.0-2.8) Lipase 171 (23-300) U/L Urine Color Urine Appearance Urine pH (4.5-8.0) Ur Specific [place] (1.000-1.035) Urine Protein (Negative) Urine Glucose (UA) (Normal) g/dL Urine Ketones (NEGATIVE) Urine Occult Blood (Negative) Urine Nitrate (Negative) Urine Bilirubin (NEGATIVE) Urine Urobilinogen (0.2) E.U./dL Ur Leukocyte Esterase (NEGATIVE) Urine RBC (0-5/HPF) Urine WBC (0-5/HPF) Ur Squamous Epith Cells Urine Bacteria (None) Ur Culture Indicated? Micro UA Comment 02/04/18 02/04/18 02/04/18 Range/Units 17:28 19:15 19:19 WBC (4.5-11.0) X10^3/uL RBC (4.0-5.2) X10^6/uL Hgb (12.0-16.0) g/dL Hct (36-46) % MCV (80-100) fL MCH (26-34) PG MCHC (30-36) % RDW (11.6-14.8) % Plt Count (150-400) X10^3/uL Neut % (Auto) (50-75) % Lymph % (Auto) (25-40) % [place] % (Auto) (3-14) % Eos % (Auto) (2-4) % Baso % (Auto) (0-2) % Neut # (Auto) (6360-3232) /uL PT (10.1-12.7) SECONDS INR (0.9-1.3) APTT (26.4-36.2) SECONDS Sodium 140 (137-145) mmol/L Potassium 6.1 H (3.4-5.1) mmol/L Chloride 112 H (98-107) mmol/L Carbon Dioxide 9 L* (22-32) mmol/L BUN (7-17) mg/dL Creatinine (0.52-1.04) mg/dL Estimated GFR (>60) mL/min BUN/Creatinine Ratio (6-22) Glucose (80-110) mg/dL Lactate 6.3 H (0.7-2.1) mmol/L Calcium (8.4-10.2) mg/dL Total Bilirubin (0.2-1.3) mg/dL AST (14-36) IU/L ALT (9-52) IU/L Alkaline Phosphatase (38-126) U/L Troponin I (0.01-0.034) ng/mL Total Protein (6.3-8.2) g/dL Albumin (3.5-5.0) g/dL Globulin (1.7-4.1) g/dL Albumin/Globulin Ratio (1.0-2.8) Lipase (23-300) U/L Urine Color Yellow Urine Appearance Clear Urine pH 5.5 (4.5-8.0) Ur Specific [place] 1.010 (1.000-1.035) Urine Protein Negative (Negative) Urine Glucose (UA) Negative (Normal) g/dL Urine Ketones Negative (NEGATIVE) Urine Occult Blood Trace-lysed (Negative) Urine Nitrate Negative (Negative) Urine Bilirubin Negative (NEGATIVE) Urine Urobilinogen 0.2 (0.2) E.U./dL Ur Leukocyte Esterase Negative (NEGATIVE) Urine RBC 0-1/hpf (0-5/HPF) Urine WBC 0-1/hpf (0-5/HPF) Ur Squamous Epith Cells 0-1 /hpf Urine Bacteria None seen (None) Ur Culture Indicated? Cult not indicated Micro UA Comment Microscopic normal Point of Care Testing Glucose POC [address] chest/pelvis w/o constrast: Radiologist's impression: [address] [address] [address] Scan Report Signed Patient: Brisa Junior [facility]#: [id number] : 8Acct:[id number] Age/Sex: 72 / FDate of Service: 02/04/18 Loc: ED Accession Number: [id number] Procedure: CT abdomen pelvis wo con Ordering Provider: Karis Rajan D.O. PROCEDURE: CT ABDOMEN PELVIS WO CON INDICATIONS: vomiting, no BM for several days, ? flatus TECHNIQUE: Noncontrast 5 mm thick sections acquired from the diaphragms to the symphysis. 5 mm coronal and sagittal reformats were then performed. For radiation dose reduction, the following was used: automated exposure control, adjustment of mA and/or kV according to patient size. COMPARISON: None. FINDINGS: Image quality: Excellent. ABDOMEN: Lung bases: 4 mm nodular density in posterior aspect of right lung base is seen. No pleural effusion or pneumothorax. Heart size is enlarged, no pericardial effusion. Solid organs: Liver is normal in size. Gallbladder is within normal limits. Pancreas is normal in contours. Spleen is normal in size. No adrenal nodules. Kidneys are normal in size, without hydronephrosis or nephrolithiasis. Peritoneum and bowel: There is fecal stasis throughout the colon with suggestion of colonic wall thickening predominantly involving distal transverse colon, splenic flexure and descending colon. Wall thickening involving proximal ascending colon is also likely present. There is mild pericolonic fat stranding. Small foci of air pockets are seen scattered along the colonic wall, pneumatosis is suspected. Small amount of free fluid adjacent to right lobe of liver is seen. Small amount of free fluid in lower pelvis is also noted. No peritoneal free air is seen. Large hiatal hernia is seen. Nodes and vessels: No retroperitoneal or mesenteric adenopathy by size criteria. Aorta and inferior vena cava are normal in caliber. Moderate amount of atherosclerotic calcifications throughout abdominal aorta and bilateral iliac arteries are seen. Miscellaneous: No ventral hernias. PELVIS: Genitourinary: Bladder wall thickness is normal. Miscellaneous: No inguinal hernias or adenopathy. Bones: No suspicious bony lesions. No vertebral body compression fractures. Osteoarthritic changes throughout bony pelvis is seen. Degenerative disc disease is noted lumbar spine. IMPRESSION: 1. Fecal stasis throughout the colon. Suggestion of mild colonic wall thickening involving proximal ascending colon, distal transverse colon, splenic flexure and descending colon with pericolonic fat stranding. Questionable pneumatosis is seen along colonic wall. Ischemic colitis cannot be excluded. Large hiatal hernia. No abnormal small bowel wall thickening. 2. No peritoneal free air. Small amount of ascites fluid adjacent to right lobe of liver and in lower pelvis. 3. 4 mm nodular density in posterior medial aspect of right lung base. Followup CT of chest can be done in 6-12 months for evaluation of stability. Dictated by: Brendan Barahona M.D. on 02/04/2018 at 18:29 Approved by: Brendan Barahona M.D. on 02/04/2018 at 18:38 ECG Data Attestation: I personally reviewed and interpreted this ECG as follows: Interpretation: Sinus rhythm with a rate of 61 MT interval of 179 QRS of 92 and QTC of 451. Patient has no ST elevation or depression appreciated. MDM Narrative Medical decision making narrative: Patient's white count is 29, lactate blood cultures were ordered. Patient pain is improved somewhat and she is not vomiting after the nausea medication. CT abdomen pelvis has been ordered, CMP is pending. Levaquin and Flagyl ordered. Concern for septic shock. Patient has hyperkalemia, her renal function is elevated which is likely the cause. Patient has received 1L of fluid and has not urinated. Repeat evaluation of her initial EKG shows some the T-waves do appear slightly more peaked patient was started with calcium gluconate, insulin, dextrose, Lasix continuing fluids and Kayexalate. Patient had a Guerrier catheter placed. Went to CT which was changed to noncontrast secondary to her GFR. Patient's white count is 29 and secondary to concern for possible infection she was started on Levaquin and Flagyl. This was prior to her CMP being back. Spoke with rads, prelim read is thickened colon wall, ? inflammatory colitis, large hiatal hernia, no abscess, mild free fluid. no hydro, no renal mass. Lactate back @ 6. Radiology called back, while reviewing concerned about ischemic colitis, air along bowel wall is concerning. Patient is [facility] patient and contacted about transfer for ischemic colitis, the patient is receiving her 3rd L of fluid, she has been given medications for hyperkalemia patient is having urine output she had 250 dark urine out initially on Guerrier catheter placement. She is continuing to make urine and it is clear than initially. Extensive discussion with patient about need for transfer regarding her findings and need to be on middle larger facility with multiple specialties. Patient possibly need dialysis although more likely needs surgery and intensive care unit. Patient is comfortable with this plan. Also discussed with her who is aware as well. He is also okay with this plan. [facility] called, no bed availability for stepdown or ICU beds. Recontacted Dr. Bardales from [facility] who asked that we try them first. He will contact [place]. Repeat lytes and lactate ordered. Awaiting call back from Dr. Bardales from [facility] regarding placement. lytes and repeat lactate ordered. Patient on 3rd liter. While awaiting transfer patient signed out to Dr. Soto. lytes and lactate are pending. Dr. Sloan was contacted from surgery, he feels patient needs to be transferred to larger facility and would not take to OR with K of 6.8 Critical Care Time Critical Care Time: Yes Total Critical Care Time: 175 Attestation: The high probability of a clinically significant, sudden or life threatening deterioration of the [gi, cardiac, renal] system(s) required my full and direct attention, intervention and personal management. The aggregate critical care time was [175) minutes. This time is in addition to time spent performing reported procedures but includes the following: [x] Data Review and interpretation [x] Patient assessment and monitoring of vital signs [x] Documentation [x] Medication orders and management Discharge Plan [facility]arture [facility] Clinical Impression: Hyperkalemia, Acute kidney injury, Acute ischemic colitis Prescriptions: No Action aspirin 81 mg Tablet,Delayed Release (Dr/Ec) 81 mg PO DAILY Qty: 0 RF: 0 latanoprost [Xalatan] 0.005 % drops 1 drp OPHTH BEDTIME Qty: 0 RF: 0 metformin [Glucophage] 500 mg tablet 1,000 mg PO BID Qty: 360 RF: 3 metoprolol tartrate 100 mg tablet 100 mg PO BID Qty: 180 RF: 3 spironolactone 25 mg tablet 25 mg PO BID Qty: 180 RF: 3 amitriptyline 50 mg tablet 50 mg PO BEDTIME RF: 0 citalopram 20 mg tablet 20 mg PO BEDTIME RF: 0 lansoprazole 30 mg capsule,delayed release(DR/EC) 30 mg PO DAILY RF: 0 lovastatin 20 mg tablet 20 mg PO BEDTIME RF: 0 fluticasone 50 mcg/actuation spray,suspension 2 spray Intranasal DAILY RF: 0 timolol maleate 0.5 % Drops 1 drp ophthalmic (eye) BID RF: 0 brimonidine 0.15 % Drops 1 drp ophthalmic (eye) BID RF: 0 dorzolamide 2 % Drops 1 drp ophthalmic (eye) BID RF: 0 lisinopril 10 mg tablet 40 mg PO BID RF: 0 Referrals: Ezra Oconnor MD [Primary Care Provider] -
[2018-02-04] MEDS: ONDANSETRON 4 MG/2 ML INJ IV ×2 (15:58→20:27)
[2018-02-04] MEDS: SODIUM CHLORIDE 0.9% 1,000 ML 1000 ML IV ×3 (15:58→19:37)
[2018-02-04 16:04] LABS: Basophils Percent Auto 0.7 % (0-2)
[2018-02-04 16:09] LABS: Add Manual Diff / Slide Review NO; Eosinophils Percent Auto 1.4 % (2-4); Lymphocytes Percent Auto 13.7 % (25-40); Monocytes Percent Auto 1.4 % (3-14); Neutrophils Absolute Auto 24000 /uL (3000-5900); Neutrophils Percent Auto 82.8 % (50-75); Red Cell Distribution Width 13.5 % (11.6-14.8)
[2018-02-04 16:11] LABS: Hematocrit 59.3 % (36-46); Mean Corpuscular Volume 92.2 fL (80-100); Red Blood Cell Count 6.43 X10^6/uL (4.0-5.2)
[2018-02-04] MEDS: MORPHINE 4 MG/ML INJ IV (16:11)
[2018-02-04 16:12] LABS: Mean Corpuscular Hemoglobin 29.6 PG (26-34); Platelet Count 516 X10^3/uL (150-400)
[2018-02-04 16:14] LABS: PTT Partial Thromboplastin Tim 36 SECONDS (26.4-36.2)
--- NOTE | 2018-02-04 16:20 | DI.CT.S_ITS ---
PROCEDURE: CT ABDOMEN PELVIS WO CON INDICATIONS: vomiting, no BM for several days, ? flatus TECHNIQUE: Noncontrast 5 mm thick sections acquired from the diaphragms to the symphysis. 5 mm coronal and sagittal reformats were then performed. For radiation dose reduction, the following was used: automated exposure control, adjustment of mA and/or kV according to patient size. COMPARISON: None. FINDINGS: Image quality: Excellent. ABDOMEN: Lung bases: 4 mm nodular density in posterior aspect of right lung base is seen. No pleural effusion or pneumothorax. Heart size is enlarged, no pericardial effusion. Solid organs: Liver is normal in size. Gallbladder is within normal limits. Pancreas is normal in contours. Spleen is normal in size. No adrenal nodules. Kidneys are normal in size, without hydronephrosis or nephrolithiasis. Peritoneum and bowel: There is fecal stasis throughout the colon with suggestion of colonic wall thickening predominantly involving distal transverse colon, splenic flexure and descending colon. Wall thickening involving proximal ascending colon is also likely present. There is mild pericolonic fat stranding. Small foci of air pockets are seen scattered along the colonic wall, pneumatosis is suspected. Small amount of free fluid adjacent to right lobe of liver is seen. Small amount of free fluid in lower pelvis is also noted. No peritoneal free air is seen. Large hiatal hernia is seen. Nodes and vessels: No retroperitoneal or mesenteric adenopathy by size criteria. Aorta and inferior vena cava are normal in caliber. Moderate amount of atherosclerotic calcifications throughout abdominal aorta and bilateral iliac arteries are seen. Miscellaneous: No ventral hernias. PELVIS: Genitourinary: Bladder wall thickness is normal. Miscellaneous: No inguinal hernias or adenopathy. Bones: No suspicious bony lesions. No vertebral body compression fractures. Osteoarthritic changes throughout bony pelvis is seen. Degenerative disc disease is noted lumbar spine. IMPRESSION: 1. Fecal stasis throughout the colon. Suggestion of mild colonic wall thickening involving proximal ascending colon, distal transverse colon, splenic flexure and descending colon with pericolonic fat stranding. Questionable pneumatosis is seen along colonic wall. Ischemic colitis cannot be excluded. Large hiatal hernia. No abnormal small bowel wall thickening. 2. No peritoneal free air. Small amount of ascites fluid adjacent to right lobe of liver and in lower pelvis. 3. 4 mm nodular density in posterior medial aspect of right lung base. Followup CT of chest can be done in 6-12 months for evaluation of stability. Dictated by: Brendan Barahona M.D. on 02/04/2018 at 18:29 Approved by: Brendan Barahona M.D. on 02/04/2018 at 18:38
[2018-02-04] MEDS: SODIUM CHLORIDE 0.9% 1,000 ML 400 ML IV (17:15)
[2018-02-04 17:22] LABS: Alanine Aminotransferase 29 IU/L (9-52); Albumin 3.6 g/dL (3.5-5.0); Albumin Globulin Ratio 1.5 (1.0-2.8); Alkaline Phosphatase 106 U/L (38-126); Aspartate Aminotransferase 36 IU/L (14-36); BUN Creatinine Ratio 16.9 (6-22); Blood Urea Nitrogen 27 mg/dL (7-17); Calcium 8.6 mg/dL (8.4-10.2); Carbon Dioxide 11 mmol/L (22-32); Chloride 107 mmol/L (98-107); Estimated Glomerular Filt Rate 31.9 mL/min (>60); Globulin 2.4 g/dL (1.7-4.1); Glucose 235 mg/dL (80-110); HEMOLYSIS 33 (0-50); Lipase 171 U/L (23-300); Sodium 139 mmol/L (137-145)
[2018-02-04 17:24] LABS: Troponin I < 0.012 ng/mL (0.01-0.034)
[2018-02-04 17:30] LABS: Potassium 6.8 mmol/L (3.4-5.1)
[2018-02-04] MEDS: levoFLOXacin 750 MG/150 ML PIGGYBACK 100 MG IV (17:35)
[2018-02-04 17:48] LABS: Lactate (Lactic Acid) 6.3 mmol/L (0.7-2.1)
[2018-02-04] MEDS: CALCIUM GLUCONATE 4.65 MEQ in SODIUM CHLORIDE 0.9% 50 ML 120 ML IV (18:04)
[2018-02-04] MEDS: DEXTROSE 50 % IN WATER 25 GM/50 ML SYRINGE IV (18:08)
[2018-02-04] MEDS: INSULIN REGULAR 100 UNIT/ML 3 ML VIAL IV (18:11)
[2018-02-04] MEDS: FUROSEMIDE 40 MG/4 ML VIAL IV (18:14)
[2018-02-04] MEDS: SODIUM POLYSTYRENE SULFON/SORB 15 GM/60 ML CUP 30 GM PO (18:15)
[2018-02-04] MEDS: metroNIDAZOLE 500 MG/100 ML PIGGYBACK 100 MG IV (19:04)
[2018-02-04 19:29] LABS: Bacteria Urine None Seen
[2018-02-04 19:39] LABS: Appearance Urine UA CLEAR; Bilirubin Urine UA NEGATIVE (NEGATIVE); Color Urine UA YELLOW; Glucose Urine UA NEGATIVE (Normal); Ketones Urine UA NEGATIVE (NEGATIVE); Leukocyte Esterase Urine UA NEGATIVE (NEGATIVE); Nitrite Urine UA NEGATIVE (Negative); Occult Blood Urine UA TRACE-LYSED (Negative); Protein Urine UA NEGATIVE (Negative); Urobilinogen Urine UA 0.2 E.U./dL (0.2); pH Urine UA 5.5 (4.5-8.0)
[2018-02-04 19:40] LABS: Chloride 112 mmol/L (98-107); HEMOLYSIS 45 (0-50); Sodium 140 mmol/L (137-145)
--- NOTE | 2018-02-04 19:40 | PC.NURSE ---
Dr. Wall notified of hypotension; Normal saline bolus started;
[2018-02-04 19:41] LABS: RBC Urine 0-1/HPF (0-5/HPF); Squamous Epithelial Cell Urine 0-1 /HPF; WBC Urine 0-1/HPF (0-5/HPF)
[2018-02-04 19:42] LABS: Culture Indicated Urine Cult Not Indicated; Urine Comments Microscopic Normal
[2018-02-04 19:43] LABS: Potassium 6.1 mmol/L (3.4-5.1)
[2018-02-04 19:44] LABS: Carbon Dioxide 9 mmol/L (22-32)
[2018-02-04 20:02] LABS: Lactate (Lactic Acid) 7.9 mmol/L (0.7-2.1)
--- NOTE | 2018-02-04 20:05 | PC.NURSE ---
Patient became very dizziness upon standing;
[2018-02-04] MEDS: LACTATED RINGERS 1,000 ML 250 ML IV (20:20)
[2018-02-04 20:32] LABS: Procalcitonin 0.22 ng/mL (<0.5)
[2018-02-04] MEDS: SODIUM BICARB 8.4% VIAL 150 MEQ in DEXTROSE 5% WATER 1,000 ML 200 MEQ IV (20:33)
[2018-02-04 20:54] LABS: HCO3 VBG 13 mmol/L (23-28); Oxygen Saturation VBG 12 % (70-75); PCO2 VBG 46.7 mmHg (45-50); PO2 VBG 17 mmHg (35-45); Total CO2 VBG 14 mmol/L (24-29)
[2018-02-04 20:55] LABS: pH VBG 7.04 (7.33-7.43)
[2018-02-04] MEDS: NOREPINEPHRINE 4 MG in DEXTROSE 5% IN WATER 250 ML IV (21:08)
[2018-02-04 21:31] LABS: Reflexed Lactate in 2 Hours Y
[2018-02-04 23:45] LABS: Reflexed Lactate in 2 Hours Y
== END 2018-02-04 21:15 | disposition short-term general hospital (02) ==
PROVIDERS: Emergency Medicine; Emergency Provider Emergency Medicine; PCP Family Medicine
DX: E87.5 Hyperkalemia (principal); N17.9 Acute kidney failure, unspecified; K55.039 Acute (reversible) ischemia of large intestine, extent unspecified
CPT/HCPCS: 36415; 36591; 74176; 80051; 80053; 81001; 82805; 82962; 83605; 83690; 84145; 84484; 85025; 85610; 85730; 87040; 93005; 93010; 96361; 96365; 96366; 96367; 96368; 96375; 96376; 99285; 99291; 99292; J0610; J1940; J1956; J2270; J2405

== ENCOUNTER → 2018-02-26 15:18 | Outpatient (CLI) | payer OTHER, SELFPAY ==
[2018-02-26 16:29] LABS: BUN Creatinine Ratio 28.3 (6-22); Blood Urea Nitrogen 34 mg/dL (7-17); Calcium 9.7 mg/dL (8.4-10.2); Carbon Dioxide 17 mmol/L (22-32); Chloride 98 mmol/L (98-107); Estimated Glomerular Filt Rate 44.4 mL/min (>60); Glucose 102 mg/dL (80-110); HEMOLYSIS < 15 (0-50); Potassium 5.3 mmol/L (3.4-5.1); Sodium 132 mmol/L (137-145)
== END ==
PROVIDERS: PCP Family Medicine; Visit Provider Family Medicine
DX: E87.5 Hyperkalemia (principal)
CPT/HCPCS: 36415; 80048

== ENCOUNTER → 2018-03-14 09:28 | Outpatient (CLI) | payer OTHER, SELFPAY ==
[2018-03-14 09:53] LABS: Add Manual Diff / Slide Review NO; Basophils Percent Auto 1.5 % (0-2); Eosinophils Percent Auto 3.8 % (2-4); Hematocrit 38.7 % (36-46); Mean Corpuscular HGB Conc 33.7 % (30-36); Mean Corpuscular Hemoglobin 29.8 PG (26-34); Mean Corpuscular Volume 88.3 fL (80-100); Monocytes Percent Auto 6.6 % (3-14); Neutrophils Absolute Auto 5500 /uL (1500-7000); Neutrophils Percent Auto 57.1 % (50-75); Platelet Count 439 X10^3/uL (150-400); Red Blood Cell Count 4.38 X10^6/uL (4.0-5.2); Red Cell Distribution Width 13.5 % (11.6-14.8); White Blood Cell Count 9.7 X10^3/uL (4.5-11.0)
[2018-03-14 10:44] LABS: Cholesterol 157 mg/dL (140-199); HDL Cholesterol 48 mg/dL (40-60); LDL Cholesterol Calculated 45 mg/dL (<100); Triglycerides 319 mg/dL (35-150)
[2018-03-14 12:20] LABS: HEMOLYSIS < 15 (0-50); Potassium 5.3 mmol/L (3.4-5.1)
[2018-03-14 14:54] LABS: Thyroid Stimulating Hormone 2.51 uIU/mL (0.47-4.68)
[2018-03-14 18:33] LABS: Alanine Aminotransferase 29 IU/L (9-52); Albumin 4.5 g/dL (3.5-5.0); Albumin Globulin Ratio 1.6 (1.0-2.8); Alkaline Phosphatase 72 U/L (38-126); Aspartate Aminotransferase 25 IU/L (14-36); Bilirubin Total 0.4 mg/dL (0.2-1.3); Blood Urea Nitrogen 19 mg/dL (7-17); Calcium 10.3 mg/dL (8.4-10.2); Carbon Dioxide 19 mmol/L (22-32); Chloride 107 mmol/L (98-107); Estimated Glomerular Filt Rate 54.8 mL/min (>60); Globulin 2.8 g/dL (1.7-4.1); Glucose 122 mg/dL (80-110); Sodium 139 mmol/L (137-145); Total Protein 7.3 g/dL (6.3-8.2)
== END ==
PROVIDERS: Family Medicine; PCP Family Medicine; Visit Provider Family Medicine
DX: I10 Essential (primary) hypertension (principal); E78.2 Mixed hyperlipidemia; E11.9 Type 2 diabetes mellitus without complications; E87.5 Hyperkalemia
CPT/HCPCS: 36415; 80053; 80061; 84443; 85025

== ENCOUNTER → 2018-03-20 16:27 | Outpatient (CLI) | payer OTHER, SELFPAY ==
[2018-03-20 17:30] LABS: Hemoglobin A1C% w Est Avg Glu 5.7 % (4.0-6.0)
== END ==
PROVIDERS: Family Provider Family Medicine; PCP Family Medicine; Visit Provider Family Medicine
DX: E11.9 Type 2 diabetes mellitus without complications (principal)
CPT/HCPCS: 36415; 83036

== ENCOUNTER → 2018-03-28 09:35 | Outpatient (CLI) | payer OTHER, SELFPAY | PROVIDERS: Family Provider Family Medicine; PCP Family Medicine; Visit Provider Family Medicine | DX: Z46.89 Encounter for fitting and adjustment of other specified devices (principal) | CPT/HCPCS: 99212 ==

== ENCOUNTER → 2018-05-13 08:56 | Outpatient (CLI) | payer OTHER, SELFPAY | PROVIDERS: Family Provider Family Medicine; PCP Family Medicine; Visit Provider Family Medicine | DX: Z46.89 Encounter for fitting and adjustment of other specified devices (principal); K31.89 Other diseases of stomach and duodenum | CPT/HCPCS: 97602 ==

== ENCOUNTER → 2018-07-02 10:31 | Outpatient (CLI) | payer OTHER, SELFPAY ==
--- NOTE | 2018-07-02 | DI.MG.S_ITS ---
BILATERAL DIGITAL SCREENING MAMMOGRAM 3D/2D WITH CAD: 07/02/2018 CLINICAL: Routine screening. Comparison is made to exams dated: 06/21/2015 mammogram, 04/30/2013 mammogram, and 08/14/2016 mammogram - [facility]. The tissue of both breasts is predominantly fatty. Current study was also evaluated with a Computer Aided Detection (CAD) system. No significant masses, calcifications, or other findings are seen in either breast. There has been no significant interval change. IMPRESSION: NEGATIVE There is no mammographic evidence of malignancy. A 1 year screening mammogram is recommended. This exam was interpreted at Station ID: [id number]. NOTE: For mammograms, a report in lay terms will be sent to the patient. Approximately 15% of breast malignancies will not be visualized mammographically. In the management of a palpable breast mass, a negative mammogram must not discourage biopsy of a clinically suspicious lesion. Electronically Signed By: Jasmyne vaughn/jr:07/02/2018 19:39:45 letter sent: Normal Exam ACR BI-RADS Category 1: Negative [id number]
== END ==
PROVIDERS: PCP Family Medicine; Visit Provider Family Medicine
DX: Z12.31 Encounter for screening mammogram for malignant neoplasm of breast (principal)
CPT/HCPCS: 77063; 77067

== ENCOUNTER → 2018-08-05 08:27 | Outpatient (CLI) | payer OTHER, SELFPAY ==
[2018-08-05 10:21] LABS: Hemoglobin A1C% w Est Avg Glu 5.7 % (4.0-6.0)
[2018-08-05 10:31] LABS: BUN Creatinine Ratio 15.5 (6-22); Blood Urea Nitrogen 17 mg/dL (7-17); Calcium 9.7 mg/dL (8.4-10.2); Carbon Dioxide 27 mmol/L (22-32); Chloride 100 mmol/L (98-107); Estimated Glomerular Filt Rate 49.1 mL/min (>60); Glucose 96 mg/dL (80-110); HEMOLYSIS < 15 (0-50); Sodium 134 mmol/L (137-145)
[2018-08-05 10:37] LABS: Microalbumin Urine Random 6.5 mg/dL (0-1.6)
[2018-08-05 10:38] LABS: Creatinine Urine Random 167.2 mg/dL; Microalbumi Creatinin Ratio Ur 38.8 ug/mg CR (<30)
[2018-08-05 20:26] LABS: Cholesterol 171 mg/dL (140-199); HDL Cholesterol 45 mg/dL (40-60); LDL Cholesterol Calculated 70 mg/dL (<100); Triglycerides 280 mg/dL (35-150)
[2018-08-05 20:36] LABS: Add Manual Diff / Slide Review NO; Basophils Absolute Auto 100 /uL (0-100); Basophils Percent Auto 0.6 % (0-2); Eosinophils Absolute Auto 400 /uL (0-450); Eosinophils Percent Auto 4.2 % (2-4); Hemoglobin 12.4 g/dL (12.0-16.0); Lymphocytes Absolute Auto 3500 /uL (1100-4500); Lymphocytes Percent Auto 35.6 % (25-40); Mean Corpuscular HGB Conc 32.7 % (30-36); Mean Corpuscular Volume 88.6 fL (80-100); Monocytes Absolute Auto 800 /uL (0-900); Monocytes Percent Auto 7.8 % (3-14); Neutrophils Absolute Auto 5100 /uL (1500-7000); Neutrophils Percent Auto 51.8 % (50-75); Platelet Count 347 X10^3/uL (150-400); Red Blood Cell Count 4.28 X10^6/uL (4.0-5.2); Red Cell Distribution Width 13.6 % (11.6-14.8); White Blood Cell Count 9.8 X10^3/uL (4.5-11.0)
== END ==
PROVIDERS: PCP Family Medicine; Visit Provider Family Medicine
DX: D64.9 Anemia, unspecified (principal); E11.9 Type 2 diabetes mellitus without complications; E78.2 Mixed hyperlipidemia; I10 Essential (primary) hypertension
CPT/HCPCS: 36415; 80048; 80061; 82043; 82570; 83036; 85025

== ENCOUNTER → 2018-08-29 11:03 | Outpatient (CLI) | payer OTHER, SELFPAY | PROVIDERS: PCP Family Medicine; Visit Provider Family Medicine | DX: Z43.1 Encounter for attention to gastrostomy (principal) | CPT/HCPCS: 97602 ==

== ENCOUNTER → 2018-09-15 14:40 | Outpatient (CLI) | payer OTHER, SELFPAY ==
[2018-09-15 16:15] LABS: BUN Creatinine Ratio 16.4 (6-22); Blood Urea Nitrogen 18 mg/dL (7-17); Calcium 9.9 mg/dL (8.4-10.2); Carbon Dioxide 23 mmol/L (22-32); Chloride 102 mmol/L (98-107); Estimated Glomerular Filt Rate 49.1 mL/min (>60); Glucose 120 mg/dL (80-110); HEMOLYSIS < 15 (0-50); Sodium 137 mmol/L (137-145)
[2018-09-15 16:21] LABS: Potassium 5.4 mmol/L (3.4-5.1)
== END ==
PROVIDERS: PCP Family Medicine; Visit Provider Family Medicine
DX: E87.5 Hyperkalemia (principal)
CPT/HCPCS: 36415; 80048

== ENCOUNTER → 2018-09-19 11:24 | Outpatient (CLI) | payer OTHER, SELFPAY | PROVIDERS: PCP Family Medicine; Visit Provider Family Medicine | DX: Z43.3 Encounter for attention to colostomy (principal) | CPT/HCPCS: 99212 ==